=== PATIENT | female | born 1975 | race Caucasian/White ===

== ENCOUNTER → 2016-05-17 | Outpatient (CLI) | payer BC, OTHER ==
[~2016-05-17] MED LIST: FERR324T2 PO; FERR32TA PO; IRON65TA PO; LIDO5DIS36 TD; LORT5TAB PO; MELO15TA4 PO; METOPOW OR; ONDA1TAB15 PO; OXYC1TAB23 PO; REGL10TA6 PO; VICO7.5T11 PO; VITATAB11 PO; XARE20TA PO; ZOFR20TA PO; ZONI25CA2 PO; flexeril OR; promethazine PO; vicodin OR
--- NOTE | 2016-05-19 10:41 | SLEEPCENT ---
DATE OF PROCEDURE: 05/17/2016 ORDERED BY: Dr. Shaver. Nocturnal polysomnography was performed due to concern for the obstructive sleep apnea syndrome symptoms in this patient with complaints of excessive somnolence, morning headaches and nonrestorative sleep. 7 hours and 50 minutes of data were reviewed. There were 372 minutes of sleep identified. Sleep latency was prolonged at 80 minutes Rapid eye movement (REM) latency was likewise prolonged at 159 minutes. Sleep architecture was fair with some fragmentation early in the study. Two REM periods were appreciated. Overall sleep efficiency was 79.9%. The patient's EKG showed a sinus rhythm with an average heart rate of 76 beats per minute. Rate variability was seen surrounding respiratory events. Rate ranged 60-100 beats per minute. EEG showed was mildly artifactual. No focal events were identified. There were normal wave forms for awake and sleep. There were 47 respiratory events identified of 10 seconds in duration or greater for an apnea-hypopnea index of 7.6. The events were obstructive not exclusive to sleep stage nor body posture. Arousals from respiratory events occurred 2.7 times per hour. Oxygen desaturations were seen into the 80s. Some limb activity was noted but arousals from limb events occurred only 3.2 times per hour. Snoring was noted over the course of the study. IMPRESSION: Mild obstructive sleep apnea syndrome (G47.33). RECOMMENDATION: Given the sleep fragmentation and oxygen desaturations identified, the patient should be referred back to the sleep disorder center for pressure therapy. In the interim, alcohol and sedative avoidance should be practiced and caution exercised during operation of motor vehicles.
== END ==
LOC: M SLEEP 19:26
PROVIDERS: ATTEND Internal Medicine Pulmonary Disease
DX: R06.83 Snoring (principal); G47.33 Obstructive sleep apnea (adult) (pediatric)

== ENCOUNTER → 2016-07-01 | Outpatient (CLI) | payer BC, OTHER ==
--- NOTE | 2016-07-03 15:08 | SLEEPCENT ---
DATE OF PROCEDURE: 07/01/2016 ORDERED BY: Dr. Shaver Nocturnal polysomnography was performed for the titration of pressure therapy in this patient with obstructive sleep apnea syndrome and apnea-hypopnea index of 7.6. For testing, the patient was fit with a Squla Eson nasal mask of small size and 4 cm of water pressure were applied to the circuit and the lights were extinguished. 8 hours and 3 minutes of data were reviewed. There were 397 minutes of sleep identified. Sleep latency was normal at 9 minutes. Rapid eye movement (REM) latency was delayed at 154 minutes. Sleep architecture improved with pressure therapy. There were 3 REM periods appreciated. Overall sleep efficiency was 82.8%. Electrocardiogram (EKG) showed a sinus rhythm with an average heart rate of 72 beats per minute. Electroencephalogram (EEG) showed normal waveforms for awake and sleep. Respiratory events were fully palliated with CPAP at a pressure of +6. There was minimal limb activity and remaining measures of sleep physiology were normal. IMPRESSION: Obstructive sleep apnea syndrome (G47.33). RECOMMENDATION: Nightly use of pressure therapy at 6 cm of water.
== END ==
LOC: M SLEEP 19:36
PROVIDERS: ATTEND Internal Medicine Pulmonary Disease
DX: G47.33 Obstructive sleep apnea (adult) (pediatric) (principal)

== ENCOUNTER → 2016-07-09 | Outpatient (CLI) | payer BC, OTHER ==
--- NOTE | 2016-07-09 16:05 | REPMRS ---
Patient History The patient states she has not had a clinical breast exam in over a year. Family history of breast cancer in maternal grandmother and breast cancer in maternal cousin at age 35. Digital Mammo Screening Bilat: July 09, 2016 - Exam #: [id number] Bilateral CC and MLO view(s) were taken. Technologist: Jovanna Villarreal, Technologist No prior studies available for comparison. FINDINGS: There are scattered fibroglandular densities. There is no evidence of cancer on this mammogram. ASSESSMENT: BI-RADS/ACR category 2 mammogram. Benign finding(s). Recommendation Routine screening mammogram of both breasts in 1 year (for women over age 40). This mammogram was interpreted with the aid of an FDA-approved computer-aided dectection system. Electronically Signed By: Bebeto Browning MD 07/09/16 [id number]
== END ==
LOC: M RAD 14:44
PROVIDERS: ATTEND Nurse Practitioner Adult Health
DX: Z12.31 Encounter for screening mammogram for malignant neoplasm of breast (principal)

== ENCOUNTER → 2016-07-19 | Outpatient (CLI) | payer OTHER ==
[~2016-07-19] MED LIST changes: +ELIQ5TAB; +GABA-279; +METF500T; +Percocet; +Symbicort
--- NOTE | 2016-07-27 02:07 | ECWPNPC ---
PATIENT NAME: FARIBA COCHRAN : 1975 GENDER: FEMALE VISIT DATE: 07/19/2016 DISCHARGE DATE: 07/19/16 1645 VISIT LOCKED DATE TIME: PHYSICIAN: BETZY RIVERA RESOURCE: BETZY RIVERA REASON FOR APPOINTMENT 1. SHOULDER/NECK PAIN HISTORY OF PRESENT ILLNESS HISTORY OF PRESENT ILLNESS: PAIN THE PATIENT DESCRIBES THE PAIN... 41 YEAR OLD FEMALE PATIENT WITH HISTORY OF CHRONIC NECK AND SHOULDER PAIN. PATIENT DESCRIBES THE PAIN ACHING, SHARP, STABBING, TENDER, THROBBING, SORE, AND HAVING IT ALL THE TIME WITH A PAIN SCORE OF 7/10. PATIENT STATES THAT SHE WAS USING HYDROCODONE FOR PAIN MANAGEMENT BUT HAS RUN OUT. MRS. COCHRAN STATES THAT THE PAIN IS GETTING SEVERE IN HER RIGHT SHOULDER AND WOULD LIKE TO REPEAT TRIGGER POINT INJECTIONS IF POSSIBLE. PATIENT DENIES UNEXPLAINABLE WEIGHT LOSS, FEVER, CHILLS, NEW CHANGES ON HER URINARY OR BOWEL CONTROL. FALL RISK SCREENING: SCREENING :NO FALLS IN THE PAST YEAR CURRENT MEDICATIONS TAKING VITAMIN B COMPLEX TABLET ORALLY , NOTES: 2 WEEKS AGO TAKING PROAIR HFA 108 (90 BASE) MCG/ACT AEROSOL SOLUTION INHALE TWO PUFFS BY MOUTH EVERY 4 HOURS NEEDED INHALATION , NOTES: 09-18-15 TAKING ELIQUIS 5 MG TABLET TAKE ONE TABLET BY MOUTH TWICE A DAY ORAL , NOTES: 09-18-152229 TAKING METFORMIN HCL ER 500 MG TABLET EXTENDED RELEASE 24 HOUR TAKE 3 TABLET BY MOUTH AT DINNERTIME ORAL , NOTES: 09-14-15 TAKING ONDANSETRON 4 MG TABLET DISPERSIBLE DISSOLVE ONE TABLET ON THE TONGUE EVERY 6 HOURS NEEDED FOR NAUSEA ORAL , NOTES: 1 MONTH AGO TAKING SERTRALINE HCL 50 MG TABLET TAKE ONE TABLET BY MOUTH EVERY DAY ORAL , NOTES: HAS NOT STARTED TAKING GABAPENTIN 100 MG CAPSULE ORALLY THREE TIMES DAILY, NOTES: [id number] TAKING LIDODERM 5 % PATCH 1 PATCH TO INTACT SKIN REMOVE AFTER 12 HOURS EXTERNALLY ONCE A DAY, NOTES: 09-17-15 TAKING CYCLOBENZAPRINE HCL 10 MG TABLET 1 TABLET ORALLY BEFORE BEDTIME PRN FOR SPASMS AND PAIN TAKING OXYCODONE HCL 5 MG TABLET 1 TABLET ORALLY EVERY 6 HRS PRN FOR PAIN MDD3 TAKING SYMBICORT 80-4.5 MCG/ACT AEROSOL 2 PUFFS INHALATION TWICE A DAY NOT-TAKING IRON 1 TAB ORAL , NOTES: 09-16-15 MEDICATION LIST REVIEWED AND RECONCILED WITH THE PATIENT PAST MEDICAL HISTORY DVT CHRONIC BACKPAIN AND NECK PAIN HEADACHE PE RA ANGINA PECTORIS ALLERGIES IBUPROFEN: INTOLERANCE SURGICAL HISTORY APPENDECTOMY D&C GHASSAN FILTER TONSILS GHASSAN FILTER REMOVED PARTIAL HYSTERECTOMY FAMILY HISTORY NO FAMILY HISTORY DOCUMENTED. SOCIAL HISTORY GENERAL: TOBACCO USE ARE YOU A:NONSMOKER RECREATIONAL DRUG USE DRUG USE?NO CAFFEINE CAFFEINE USE?NO LEARNING BARRIERS / SPECIAL NEEDS ABILITY TO UNDERSTAND VERBAL INSTRUCTIONS GOOD, ABILITY TO UNDERSTAND WRITTEN INSTRUCTIONS GOOD, KNOWLEDGE OF EDUCATIONAL NEEDS/TREATMENT PLAN GOOD, VOODOO? NO, ORIENTED TO PLAN OF CARE: PATIENT, PAIN MANAGEMENT PATIENT. MEDICATION ABUSE NO PSYCHOLOGICAL HX TREATMENTNO NEW PATIENT PAIN DIARY PATIENT DESCRIBES PAIN :ACHING, HAVE IT ALL THE TIME, SHARP, STABBING, SORE PAIN CLINIC PFS, CLERGY, PUBLIC HEALTH REFERRALS PFS REFERRAL NEEDED?NO CLERGY REFERRAL NEEDED?NO PUBLIC HEALTH REFERRAL NEEDED?NO WAS THE PROVIDER NOTIFIED OF ANY PERTINENT INFO?NO PATIENT: ____, DENIES ABUSE OR MISUSE OF ANY MEDICATION. ADVANCED DIRECTIVES HEALTH CARE PROXY?YES NAME OF HCP DEBORA COCHRAN CONTACT # FOR HCP [phone] DO YOU HAVE A COPY WITH YOU?NO POWER OF RED LEADER?NO HOSPITALIZATION/MAJOR DIAGNOSTIC PROCEDURE VARIOUS ADMISSIONS FOR BLOOD TRANSFUSIONS 2016 REVIEW OF SYSTEMS CONSTITUTIONAL: ANY CHANGE IN YOUR MEDICAL CONDITION? YES. PT RECENTLY DX WITH ZAHRAA. PT WAS RECENTLY SIZED FOR CPAP, WAITING TO RECEIVE MASK. PT STATES RIGHT SHOULDER PAIN MCC. TPI DONE 09/2014 WITH GOOD RESULTS. PT HAD F/U APPT HERE 10/2015, TPI WERE DISCUSSED, PT DIDN'T PURSUE APPT LIFE GOT IN THE WAY. PT STATES SHE ALSO HAD STERIOD INJECTIONS AT [facility] 01/2016 WITH GOOD RESULTS. PT PRESENTS TODAY RIGHT SHOULDER PAIN IS INCREASING IN INTENSITY . PT WOULD LIKE TO DISCUSS TPI TODAY. PT STATES SHE TAKES METFORMIN FOR WEIGHT LOSS, NOT DM. PT STATES SHE TAKES ELIQUIS FOR DVT & PE.&NBSP;. CHILLS &NBSP;&NBSP; NO&NBSP;. FEVER &NBSP;&NBSP; NO&NBSP;. INFECTION: DO YOU HAVE NEW INFECTIONS? NO . DO YOU HAVE HISTORY OF MRSA? NO . MUSCULOSKELETAL: ANY NEW PATTERNS OF PAIN OR NUMBNESS? NO . GASTROENTEROLOGY: ANY NEW CHANGE IN BOWEL CONTROL? NO . GENITOURINARY: ANY NEW CHANGE IN BLADDER CONTROL? NO . IS THERE A CHANCE YOU COULD BE ? NO . HEMATOLOGY/LYMPH: DO YOU TAKE ANY BLOOD THINNERS? (FOR EXAMPLE- COUMADIN, PLAVIX, AGGRENOX, PLATEL, PRADAXA, OR XARELTO) YES, ELLIQUIS . WHEN WAS YOUR LAST DOSE? DATE: TIME: . NEUROLOGY: HAVE YOU FALLEN IN THE PAST 6 MONTHS? NO . ANY NEW EXTREMITY NUMBNESS OR WEAKNESS? NO . CARDIOLOGY: DO YOU HAVE A PACEMAKER OR DEFIBRILLATOR? NO . RESPIRATORY: HAVE YOU BEEN SICK IN THE PAST WEEK? NO . FEVER NO . FLU LIKE SYMPTOMS? NO . COUGH NO. RECENT DX OF ZAHRAA, CPAP IN PROCESS . INTEGUMENTARY: DO YOU HAVE ANY RASHES OR OPEN SORES? NO . ALLERGIC/IMMUNO: ARE YOU ALLERGIC TO SHELLFISH OR IV DYE? NO . ANY NEW ALLERGIES? NO . PSYCHIATRIC: DO YOU HAVE THOUGHTS OF HURTING YOURSELF OR SOMEONE ELSE? NO . ARE YOU ABUSED, NEGLECTED, OR IN AN UNSAFE ENVIRONMENT? NO . ENDOCRINOLOGY: ARE YOU DIABETIC? NO . OTHER: DO YOU NEED ANY PRESCRIPTIONS? YES. PERCOSET . IF YES, PLEASE LIST: ____ . ANY NEW PROBLEMS WITH YOUR MEDICATIONS? NO . WHEN DID YOU LAST EAT? ____ . WHEN DID YOU LAST DRINK? ____ . WHAT DID YOU LAST DRINK? ____ . NAME OF PERSON DRIVING YOU HOME? ____ . DO YOU HAVE ANY OTHER QUESTIONS OR CONCERNS NO . REVIEWED BY: PROVIDER: BETZY RIVERA MD . VITAL SIGNS WT 317 LBS, HT 67 IN, BMI 49.64 INDEX, BP 139/96 MM HG, HR 84 /MIN, RR 16 /MIN, TEMP 99.0 F, OXYGEN SAT % 97%, SAFE IN ENV? (Y/N) Y, NA INITIALS KS 15:42, REVIEWED BY: EM. EXAMINATION : PATIENT IS ALERT O X 3 AND COOPERATIVE. TENDERNESS IN THE SHOULDER AND CERVICAL AREA. PATIENT HAS BANDS OF TISSUES, RESTRICTION OF MOVEMENT AND PRESENCE OF TRIGGER POINTS AT THE SHOULDER AND NECK AREA. ASSESSMENTS MYALGIA - M79.1 (PRIMARY) TREATMENT MYALGIA NOTES: WE DISCUSSED SEVERAL ISSUES WITH MRS. COCHRAN'S PAIN MANAGEMENT CASE. AT THIS TIME THE PATIENT WILL RECEIVE A RECEIVE OF OXYCODONE FOR THE SOMATIC PAIN. PATIENT DENIES ABUSE OF ANY MEDICATION, DENIES USE OF ILLEGAL SUBSTANCES, AND SATES THAT SHE IS ONLY USING THE MEDICATION FOR PAIN MANAGEMENT. WE DISCUSSED MOVING FORWARD WITH TRIGGER POINT INJECTIONS DUE TO THE SPASTICITY IN THE NECK AND SHOULDER AREA. WE DISCUSSED THE RISKS, BENENFITS, AND ALTNERATIVES OF THE INJECTION AND THE PATIENT WOULD LIKE TO PROCEED AT THIS TIME. INSTRUCTIONS WERE GIVEN, QUESTIONS WERE ANSWERED, PATIENT REPORTS UNDERSTANDING AND AGREES WITH THE PLAN. I, EREN BERG, DOCUMENTED THE ABOVE INFORMATION ACTING A SCRIBE FOR DR. RIVERA. I HAVE REVIEWED THE ABOVE DOCUMENT, WRITTEN BY EREN NAIK AND I VERIFY THAT IT IS ACCURATE. OTHERS REFILL OXYCODONE HCL TABLET, 5 MG, 1 TABLET, ORALLY, EVERY 6 HRS PRN FOR PAIN MDD3, 30 DAY(S), 10, REFILLS 0 PROCEDURE CODES FA211 ESTABILISHED PATIENT [facility] FAC[facility] CHARGE G8427 DOC MEDS VERIFIED W/PT OR RE G8730 PAIN ASSESS POS TOOL F/U PLAN DOC DISPOSITION & COMMUNICATION FOLLOW UP 3 WEEKS ELECTRONICALLY SIGNED BY BETZY RIVERA MD ON 07/26/2016 AT 07:04 PM EDT DISCLAIMER : THIS IS A VISIT SUMMARY EXTRACTED FROM THE [employer] CHART. IT IS NOT A COPY OF THE [employer] PROGRESS NOTE. ETHAN
== END ==
LOC: M PAIN 15:40
PROVIDERS: ATTEND Anesthesiology
DX: M79.1 Myalgia (principal); G89.29 Other chronic pain; M54.2 Cervicalgia; M25.511 Pain in right shoulder; Z79.891 Long term (current) use of opiate analgesic; Z79.899 Other long term (current) drug therapy; Z79.84 Long term (current) use of oral hypoglycemic drugs

== ENCOUNTER → 2016-08-04 | Outpatient (CLI) | payer BC, OTHER ==
[~2016-08-04] MED LIST changes: +BUPIVACAINE HCL 0.25% 10 ML VIAL As Ordered ONE; +BUPIVACAINE HCL 0.25% 30 ML VIAL As Ordered ONE; +TRIAMCINOLONE ACETONIDE SUSP 40 MG/ML VIAL (J3301) As Ordered ONE
--- NOTE | 2016-08-08 23:38 | ECWPNPC ---
PATIENT NAME: FARIBA COCHRAN : 1975 GENDER: FEMALE VISIT DATE: 08/04/2016 DISCHARGE DATE: 08/04/16 1331 VISIT LOCKED DATE TIME: PHYSICIAN: BETZY RIVERA RESOURCE: BETZY RIVERA REASON FOR APPOINTMENT 1. TPI HISTORY OF PRESENT ILLNESS HISTORY OF PRESENT ILLNESS: PAIN THE PATIENT DESCRIBES THE PAIN... FALL RISK SCREENING: SCREENING :NO FALLS IN THE PAST YEAR CURRENT MEDICATIONS TAKING OXYCODONE HCL 5 MG TABLET 1 TABLET ORALLY EVERY 6 HRS PRN FOR PAIN MDD3, NOTES: 5-6 DAYS AGO TAKING VITAMIN B COMPLEX TABLET ORALLY , NOTES: 2 WEEKS TAKING PROAIR HFA 108 (90 BASE) MCG/ACT AEROSOL SOLUTION INHALE TWO PUFFS BY MOUTH EVERY 4 HOURS NEEDED INHALATION , NOTES: 2 WEEKS TAKING ELIQUIS 5 MG TABLET TAKE ONE TABLET BY MOUTH TWICE A DAY ORAL , NOTES: 0630 TAKING METFORMIN HCL ER 500 MG TABLET EXTENDED RELEASE 24 HOUR TAKE 3 TABLET BY MOUTH AT DINNERTIME ORAL , NOTES: 08/03/16@1830 TAKING ONDANSETRON 4 MG TABLET DISPERSIBLE DISSOLVE ONE TABLET ON THE TONGUE EVERY 6 HOURS NEEDED FOR NAUSEA ORAL , NOTES: 3 MONTHS AGO TAKING GABAPENTIN 100 MG CAPSULE ORALLY THREE TIMES DAILY, NOTES: 0630 TAKING LIDODERM 5 % PATCH 1 PATCH TO INTACT SKIN REMOVE AFTER 12 HOURS EXTERNALLY ONCE A DAY, NOTES: 1 MONTH AGO TAKING SYMBICORT 80-4.5 MCG/ACT AEROSOL 2 PUFFS INHALATION TWICE A DAY, NOTES: 2 DAYS AGO NOT-TAKING SERTRALINE HCL 50 MG TABLET TAKE ONE TABLET BY MOUTH EVERY DAY ORAL , NOTES: HAS NOT STARTED NOT-TAKING IRON 1 TAB ORAL , NOTES: 09-16-15 DISCONTINUED CYCLOBENZAPRINE HCL 10 MG TABLET 1 TABLET ORALLY BEFORE BEDTIME PRN FOR SPASMS AND PAIN MEDICATION LIST REVIEWED AND RECONCILED WITH THE PATIENT PAST MEDICAL HISTORY DVT CHRONIC BACKPAIN AND NECK PAIN HEADACHE PE RA ANGINA PECTORIS SLEEP APNEA ON CPAP ALLERGIES IBUPROFEN: INTOLERANCE REVIEW OF SYSTEMS CONSTITUTIONAL: ANY CHANGE IN YOUR MEDICAL CONDITION? YES, SLEEP APNEA . CHILLS NO . FEVER NO . INFECTION: DO YOU HAVE NEW INFECTIONS? NO . DO YOU HAVE HISTORY OF MRSA? NO . MUSCULOSKELETAL: ANY NEW PATTERNS OF PAIN OR NUMBNESS? NO . GASTROENTEROLOGY: ANY NEW CHANGE IN BOWEL CONTROL? NO . GENITOURINARY: ANY NEW CHANGE IN BLADDER CONTROL? NO . IS THERE A CHANCE YOU COULD BE ? NO . HEMATOLOGY/LYMPH: DO YOU TAKE ANY BLOOD THINNERS? (FOR EXAMPLE- COUMADIN, PLAVIX, AGGRENOX, PLATEL, PRADAXA, OR XARELTO) YES . WHEN WAS YOUR LAST DOSE? DATE: TIME: 08/04/16@0630 . NEUROLOGY: HAVE YOU FALLEN IN THE PAST 6 MONTHS? NO . ANY NEW EXTREMITY NUMBNESS OR WEAKNESS? NO . CARDIOLOGY: DO YOU HAVE A PACEMAKER OR DEFIBRILLATOR? NO . RESPIRATORY: HAVE YOU BEEN SICK IN THE PAST WEEK? NO . FEVER NO . FLU LIKE SYMPTOMS? NO . COUGH NO . INTEGUMENTARY: DO YOU HAVE ANY RASHES OR OPEN SORES? NO . ALLERGIC/IMMUNO: ARE YOU ALLERGIC TO SHELLFISH OR IV DYE? NO . ANY NEW ALLERGIES? NO . PSYCHIATRIC: DO YOU HAVE THOUGHTS OF HURTING YOURSELF OR SOMEONE ELSE? NO . ARE YOU ABUSED, NEGLECTED, OR IN AN UNSAFE ENVIRONMENT? NO . ENDOCRINOLOGY: ARE YOU DIABETIC? NO . OTHER: DO YOU NEED ANY PRESCRIPTIONS? NO . IF YES, PLEASE LIST: ____ . ANY NEW PROBLEMS WITH YOUR MEDICATIONS? NO . WHEN DID YOU LAST EAT? ____ . WHEN DID YOU LAST DRINK? ____ . WHAT DID YOU LAST DRINK? ____ . NAME OF PERSON DRIVING YOU HOME? ____DON COCHRAN . DO YOU HAVE ANY OTHER QUESTIONS OR CONCERNS NO . REVIEWED BY: PROVIDER: . VITAL SIGNS WT 317 LBS, HT 67 IN, BMI 49.64 INDEX, BP 146/88 MM HG, HR 97 /MIN, RR 18 /MIN, TEMP 98.3 F, OXYGEN SAT % 97%, NA INITIALS SC 12:42, REVIEWED BY: VD. ASSESSMENTS MYALGIA - M79.1 (PRIMARY) PROCEDURES PN TRIGGER POINT INJECTION NO STEROIDS PRE PROCEDURE DIAGNOSIS 1. MYALGIA 2. PAIN AT RIGHT SHOULDER AREA POST PROCEDURE DIAGNOSIS 1. MYALGIA 2. PAIN AT RIGHT SHOULDER AREA PROCEDURE TRIGGER POINT INJECTION AT RIGHT SHOULDER AREA SURGEON DR. BETZY RIVERA DIRECTOR OF ORTHOPEDICS NONE ANESTHESIA LOCAL PRE PROCEDURE NOTE 41 YEAR-OLD PATIENT WITH HISTORY OF CHRONIC PAIN AT RIGHT SHOULDER AREA. I EVALUATED THE PATIENT AND REVIEWED THE CHART. THERE IS EVIDENCE OF BANDS OF TISSUE WITH RESTRICTION OF MOVEMENT AND PRESENCE OF TRIGGER POINT AT THE AFFECTED AREA. I WENT OVER THE RISKS, ALTERNATIVES, AND BENEFITS ASSOCIATED WITH THIS PROCEDURE. THE PATIENT WOULD LIKE TO PROCEED AND GAVE CONSENT TO PERFORM THE PROCEDURE. THE PATIENT DENIES UNEXPLAINABLE WEIGHT LOSS, FEVER, CHILLS, OR NEW CHANGES IN URINARY OR BOWEL CONTROL. DESCRIPTION OF PROCEDURE THE PATIENT WAS BROUGHT TO THE PROCEDURE ROOM AND PLACED IN THE SITTING PRONE POSITION. THE AREA WAS CLEANED WITH ALCOHOL. THE PROCEDURE WAS DONE USING [employer] STERILE TECHNIQUES. I CHECKED LATERALITY AND THE LEVEL WHERE THE PROCEDURE WAS GOING TO BE PERFORMED WITH THE PATIENT AND THE SUPPORTING STAFF AT THE MOMENT OF THE TIME OUT IN THE PROCEDURE ROOM. USING A 25-GAUGE NEEDLE, TRIGGER POINTS WERE INJECTED AT THE RIGHT SHOULDER AREA WITH A TOTAL OF 40 ML OF BUPIVACAINE 0.25%. AGREED WITH THE PATIENT THE PROCEDURE WAS DONE WITHOUT STEROIDS. THERE WAS NO EVIDENCE OF BLOOD, PARESTHESIA OR CEREBROSPINAL FLUID DURING THE PROCEDURE. THE PATIENT WAS SENT TO THE RECOVERY ROOM. THE PATIENT WAS MOVING THE EXTREMITIES AND DOING WELL. THERE WAS NO COMPLICATION DURING THE PROCEDURE POST PROCEDURE NOTE THE PATIENT WILL BE SEEN IN A FOLLOW UP IN THE NEXT FEW WEEKS. INSTRUCTIONS WERE GIVEN, QUESTIONS WERE ANSWERED, AND THE PATIENT EXPRESSED UNDERSTANDING AND AGREED WITH THE PLAN. I, EREN BERG, DOCUMENTED THE ABOVE INFORMATION ACTING A SCRIBE FOR DR. RIVERA. I HAVE REVIEWED THE ABOVE DOCUMENT, WRITTEN BY EREN NAIK AND I VERIFY THAT IT IS ACCURATE PROCEDURE CODES 49250 INJ TRIGGER POINT 03/08 [facility] DISPOSITION & COMMUNICATION FOLLOW UP 3 WEEKS ELECTRONICALLY SIGNED BY BETZY RIVERA MD ON 08/08/2016 AT 05:24 PM EDT DISCLAIMER : THIS IS A VISIT SUMMARY EXTRACTED FROM THE [employer] CHART. IT IS NOT A COPY OF THE [employer] PROGRESS NOTE. ETHAN
== END ==
LOC: M PAIN 12:40
PROVIDERS: ATTEND Anesthesiology
DX: G89.29 Other chronic pain (principal); M79.1 Myalgia; M25.511 Pain in right shoulder; Z79.891 Long term (current) use of opiate analgesic; Z79.899 Other long term (current) drug therapy; Z79.84 Long term (current) use of oral hypoglycemic drugs; Z88.6 Allergy status to analgesic agent

== ENCOUNTER 2016-08-12 17:43 | Emergency (ER) | payer BC, OTHER ==
[~2016-08-12] VITALS: Ht 172.7 cm; Wt 143.8 kg
[~2016-08-12 17:43] MED LIST changes: -BUPIVACAINE HCL 0.25% 10 ML VIAL As Ordered ONE; -BUPIVACAINE HCL 0.25% 30 ML VIAL As Ordered ONE; -ELIQ5TAB; -GABA-279; -METF500T; -Percocet; -Symbicort; -TRIAMCINOLONE ACETONIDE SUSP 40 MG/ML VIAL (J3301) As Ordered ONE
[2016-08-12] MEDS ORDERED: ELIQ5TAB (17:51)
[2016-08-12] MEDS ORDERED: METF500T (17:51)
[2016-08-12] MEDS ORDERED: GABA-279 (17:51)
[2016-08-12] MEDS ORDERED: Symbicort (17:51)
[2016-08-12] MEDS ORDERED: Percocet (17:51)
[2016-08-12 20:08] VITALS: BP 144/94
== END 2016-08-12 20:10 | disposition home or self-care (01) ==
LOC: M ED 18:48
DX: M79.661 Pain in right lower leg (principal); F41.9 Anxiety disorder, unspecified; F33.9 Major depressive disorder, recurrent, unspecified; D75.9 Disease of blood and blood-forming organs, unspecified; Z79.899 Other long term (current) drug therapy; Z79.84 Long term (current) use of oral hypoglycemic drugs; Z79.01 Long term (current) use of anticoagulants; Z88.8 Allergy status to other drugs, medicaments and biological substances; J30.89 Other allergic rhinitis; Z87.891 Personal history of nicotine dependence

== ENCOUNTER → 2016-09-27 | Outpatient (CLI) | payer BC, OTHER ==
[~2016-09-27] MED LIST changes: +ELIQ5TAB; +GABA-279; -LIDO5DIS36 TD; +LIDO5DIS41 TD; +METF500T13; -ONDA1TAB15 PO; +ONDA4TAB5 PO; +PERC5TAB12 PO; +PHEN30CA2; +Percocet; +Symbicort
--- NOTE | 2016-09-27 13:18 | REP ---
Left ankle four views: There is no fracture or dislocation. Mineralization is normal. 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 There are small calcaneal plantar and Achilles spurs. Signed by Bebeto Ortiz MD 09/27/2016 01:07 P
--- NOTE | 2016-09-27 13:19 | REP ---
Left foot four views: There is questionable dorsal soft tissue edema. This should be confirmed clinically. There is no fracture or dislocation. There are no calcifications or foreign bodies. There are calcaneal plantar and Achilles spurs. 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 Signed by Bebeto Ortiz MD 09/27/2016 01:08 P
== END ==
LOC: M LRY 12:08
PROVIDERS: ATTEND Nurse Practitioner Family
DX: S99.922A Unspecified injury of left foot, initial encounter (principal); M77.32 Calcaneal spur, left foot; M19.072 Primary osteoarthritis, left ankle and foot; X58.XXXA Exposure to other specified factors, initial encounter; Y92.9 Unspecified place or not applicable

== ENCOUNTER 2016-11-22 19:51 | Emergency (ER) | payer BC, OTHER ==
[~2016-11-22] VITALS: Ht 172.7 cm; Wt 139.5 kg
[~2016-11-22 19:51] MED LIST changes: -PERC5TAB12 PO; -PHEN30CA2
[2016-11-22] MEDS ORDERED: PHEN30CA2 (20:19)
[2016-11-22] MEDS ORDERED: NS 500 ML IV ONE (22:00)
[2016-11-22] MEDS ORDERED: PERCOCET 5MG/325MG TAB PO ONE (22:00)
[2016-11-22 22:10] LABS: BASO % 0.4 % (0.0-1.0); EOS # 0.2 K/mm3 (0.0-0.50); EOS % 1.9 % (0.0-3.0); LARGE UNSTAINED CELL # 0.1 K/mm3 (0.0-0.4); LARGE UNSTAINED CELL % 1.4 % (0.0-4.0); LYMPH # 1.5 K/mm3 (1.5-4.5); LYMPH % 15.5 % (24.0-44.0); MEAN CORPUSCULAR HEMOGLOBIN 27.5 pg (27.0-33.0); MEAN CORPUSCULAR HGB CONC 32.8 g/dl (32.0-36.5); MEAN CORPUSCULAR VOLUME 83.9 fl (80.0-96.0); MONO # 0.5 K/mm3 (0.0-0.8); MONO % 4.8 % (0.0-5.0); NEUTROPHILS # 7.2 K/mm3 (1.8-7.7); NEUTROPHILS % 76.1 % (36.0-66.0); PLATELET COUNT, AUTOMATED 252 k/mm3 (150-450); RED CELL DISTRIBUTION WIDTH 13.8 % (11.5-14.5); WHITE BLOOD COUNT 9.5 K/mm3 (4.0-10.0)
[2016-11-22 22:14] LABS: ALBUMIN 3.7 GM/DL (3.2-5.2); ALBUMIN/GLOBULIN RATIO 1.03 (1.00-1.93); ALKALINE PHOSPHATASE 75 U/L (45-117); ALT/SGPT 22 U/L (12-78); ANION GAP 3 MEQ/L (8-16); AST/SGOT 16 U/L (15-37); BILIRUBIN,DIRECT 0.1 MG/DL (0.0-0.2); BILIRUBIN,TOTAL 0.4 MG/DL (0.2-1.0); BLOOD UREA NITROGEN 11 MG/DL (7-18); CALCIUM LEVEL 8.9 MG/DL (8.5-10.1); CARBON DIOXIDE LEVEL 30 MEQ/L (21-32); CHLORIDE LEVEL 107 MEQ/L (98-107); CREATININE FOR GFR 0.61 MG/DL (0.55-1.02); GLOMERULAR FILTRATION RATE > 60.0 (>58); GLUCOSE, FASTING 87 MG/DL (70-105); SODIUM LEVEL 140 MEQ/L (136-145); TOTAL PROTEIN 7.3 GM/DL (6.4-8.2)
--- NOTE | 2016-11-22 23:10 | REPUSA ---
CT of the head Clinical history: Headache. Comparison: 01/07/2015. Technique: Multiple axial CT images were obtained through the head without administration of contrast . Findings: The ventricles and sulci are symmetric bilaterally. There is no evidence of acute hemorrhag e or infarct. There is no midline shift, mass effect, or extra-axial fluid collection. The osseous st ructures are unremarkable. The visualized paranasal sinuses and mastoid air cells are clear. Impression: Negative study.
[2016-11-22] MEDS ORDERED: PERC5TAB12 PO (23:20)
[2016-11-22 23:39] VITALS: BP 139/85
--- NOTE | 2016-11-23 05:59 | ECGEPIP ---
Stationary ECG Study [facility] - ED Test Date: 2016-11-22 Pat Name: FARIBA COCHRAN Department: Room: - Gender: F Coordinator Volunteer Services: : 1975 Requested By: MILLER Tran PA-C Order Number: [id number] Reading MD: Iftikhar Spence Measurements Intervals [place] Rate: 81 P: 7 MD: 174 QRS: 14 QRSD: 90 T: 11 QT: 372 QTc: 433 Interpretive Statements SINUS RHYTHM WITH SINUS ARRHYTHMIA Electronically Signed On 11-23-2016 5:58:42 EDT by Iftikhar Spence
== END 2016-11-22 23:43 | disposition home or self-care (01) ==
LOC: EDSEX 19:51 → M ED 19:51 → EDBD 19:51 → M ED 23:43
DX: R51 Headache (principal); R42 Dizziness and giddiness; Z87.891 Personal history of nicotine dependence

== ENCOUNTER → 2016-12-03 | Outpatient (CLI) | payer OTHER ==
[~2016-12-03] MED LIST changes: +PERC5TAB12 PO; +PHEN30CA2
--- NOTE | 2016-12-23 00:53 | ECWPNPC ---
PATIENT NAME: FARIBA COCHRAN : 1975 GENDER: FEMALE VISIT DATE: 12/03/2016 DISCHARGE DATE: 12/03/16954 VISIT LOCKED DATE TIME: PHYSICIAN: NADER DAY RESOURCE: NADER DAY REASON FOR APPOINTMENT 1. SHOULDER HISTORY OF PRESENT ILLNESS HISTORY OF PRESENT ILLNESS: HERE FOR F/U OF CHRONIC RIGHT SHOULDER PAIN.HAD TPI IN JULY THAT WAS NOT HELPFUL PREVIOUS TPI.DISCUSSED MEDICATION AND TREATMENT OPTIONS.PAIN RADIATES INTO NECK AND CAUSES MIGRAINES.RATING PAIN VAS 6/10.PAIN IS CONSTANT ACHING AND SHARP.PAIN IS AGGREVATED WITH ROJM NECK OR WITH RAISING RIGHT ARM.PAIN HAS GOTTEN WORSE OVER THE PAST MONTH. PAIN THE PATIENT DESCRIBES THE PAIN... FALL RISK SCREENING: SCREENING :NO FALLS IN THE PAST YEAR CURRENT MEDICATIONS TAKING PROAIR HFA 108 (90 BASE) MCG/ACT AEROSOL SOLUTION INHALE TWO PUFFS BY MOUTH EVERY 4 HOURS NEEDED INHALATION , NOTES: 2 WEEKS TAKING ELIQUIS 5 MG TABLET TAKE ONE TABLET BY MOUTH TWICE A DAY ORAL , NOTES: 629 TAKING METFORMIN HCL ER 500 MG TABLET EXTENDED RELEASE 24 HOUR TAKE 3 TABLET BY MOUTH AT DINNERTIME ORAL , NOTES: 08/03/16@1830 TAKING ONDANSETRON 4 MG TABLET DISPERSIBLE DISSOLVE ONE TABLET ON THE TONGUE EVERY 6 HOURS NEEDED FOR NAUSEA ORAL , NOTES: 3 MONTHS AGO TAKING GABAPENTIN 100 MG CAPSULE ORALLY THREE TIMES DAILY, NOTES: 06 TAKING LIDODERM 5 % PATCH 1 PATCH TO INTACT SKIN REMOVE AFTER 12 HOURS EXTERNALLY ONCE A DAY, NOTES: RAN OUT OF TAKING SYMBICORT 80-4.5 MCG/ACT AEROSOL 2 PUFFS INHALATION TWICE A DAY, NOTES: 2 DAYS AGO TAKING ACETAMINOPHEN 500 MG TABLET 2 TABLETS NEEDED ORALLY EVERY 6 HRS NOT-TAKING OXYCODONE HCL 5 MG TABLET 1 TABLET ORALLY EVERY 6 HRS PRN FOR PAIN MDD3, NOTES: INEFFECTIVE NOT-TAKING VITAMIN B COMPLEX TABLET ORALLY , NOTES: 2 WEEKS NOT-TAKING ROBAXIN 500 MG TABLET 2 TABLETS ORALLY EVERY 6 HRS MAY CAUSE DROWSINESS NOT-TAKING SERTRALINE HCL 50 MG TABLET TAKE ONE TABLET BY MOUTH EVERY DAY ORAL , NOTES: HAS NOT STARTED NOT-TAKING IRON 1 TAB ORAL , NOTES: 09-16-15 MEDICATION LIST REVIEWED AND RECONCILED WITH THE PATIENT PAST MEDICAL HISTORY DVT CHRONIC BACKPAIN AND NECK PAIN HEADACHE PE RA ANGINA PECTORIS SLEEP APNEA ON CPAP ALLERGIES IBUPROFEN: INTOLERANCE SOCIAL HISTORY GENERAL: TOBACCO USE ARE YOU A:FORMER SMOKER HOW LONG HAS IT BEEN SINCE YOU LAST SMOKED?> 10 YEARS RECREATIONAL DRUG USE DRUG USE?NO CAFFEINE CAFFEINE USE?NO LEARNING BARRIERS / SPECIAL NEEDS ABILITY TO UNDERSTAND VERBAL INSTRUCTIONS GOOD, ABILITY TO UNDERSTAND WRITTEN INSTRUCTIONS GOOD, KNOWLEDGE OF EDUCATIONAL NEEDS/TREATMENT PLAN GOOD, DRUZE? NO, ORIENTED TO PLAN OF CARE: PATIENT, PAIN MANAGEMENT PATIENT. MEDICATION ABUSE NO PSYCHOLOGICAL HX TREATMENTNO NEW PATIENT PAIN DIARY PATIENT DESCRIBES PAIN :ACHING, HAVE IT ALL THE TIME, SHARP, STABBING, SORE PAIN CLINIC PFS, CLERGY, PUBLIC HEALTH REFERRALS PFS REFERRAL NEEDED?NO CLERGY REFERRAL NEEDED?NO PUBLIC HEALTH REFERRAL NEEDED?NO WAS THE PROVIDER NOTIFIED OF ANY PERTINENT INFO?NO HAS THE PATIENT BEEN EDUCATED REGARDING HIS/HER PLAN OF CARE?YES HAS THE PATIENT BEEN EDUCATED REGARDING PAIN, THE RISK FOR PAIN, THE IMPORTANCE OF EFFECTIVE PAIN MANAGEMENT, AND THE PAIN ASSESSMENT PROCESS?YES PATIENT: ____, DENIES ABUSE OR MISUSE OF ANY MEDICATION. ADVANCE DIRECTIVES HEALTH CARE PROXY?YES NAME OF HCP DEBORA COCHRAN CONTACT # FOR HCP [phone] DO YOU HAVE A COPY WITH YOU?NO POWER OF ASSEMBLER FOR PULLER OVER MACHINE?NO REVIEW OF SYSTEMS REVIEWED BY: PROVIDER: NADER THOMAS . CONSTITUTIONAL: ANY CHANGE IN YOUR MEDICAL CONDITION? NO . CHILLS NO . FEVER NO . INFECTION: DO YOU HAVE NEW INFECTIONS? NO . DO YOU HAVE HISTORY OF MRSA? NO . MUSCULOSKELETAL: ANY NEW PATTERNS OF PAIN OR NUMBNESS? YES PT REPORTS PAIN IS WORSE IN SHOULDER/NECK. HAD TPI 07/2016 WITH SOME PAIN RELIEF REPORTED, DIDN'T LAST LONG PREVIOUS INJECTIONS . GASTROENTEROLOGY: ANY NEW CHANGE IN BOWEL CONTROL? NO . GENITOURINARY: ANY NEW CHANGE IN BLADDER CONTROL? NO . IS THERE A CHANCE YOU COULD BE ? NO . HEMATOLOGY/LYMPH: DO YOU TAKE ANY BLOOD THINNERS? (FOR EXAMPLE- COUMADIN, PLAVIX, AGGRENOX, PLATEL, PRADAXA, OR XARELTO) YES ELIQUIS . WHEN WAS YOUR LAST DOSE? DATE: TIME: . NEUROLOGY: HAVE YOU FALLEN IN THE PAST 6 MONTHS? NO . ANY NEW EXTREMITY NUMBNESS OR WEAKNESS? NO . CARDIOLOGY: DO YOU HAVE A PACEMAKER OR DEFIBRILLATOR? NO . RESPIRATORY: HAVE YOU BEEN SICK IN THE PAST WEEK? NO . FEVER NO . FLU LIKE SYMPTOMS? NO . COUGH NO . INTEGUMENTARY: DO YOU HAVE ANY RASHES OR OPEN SORES? NO . ALLERGIC/IMMUNO: ARE YOU ALLERGIC TO SHELLFISH OR IV DYE? NO . ANY NEW ALLERGIES? NO . PSYCHIATRIC: DO YOU HAVE THOUGHTS OF HURTING YOURSELF OR SOMEONE ELSE? NO . ARE YOU ABUSED, NEGLECTED, OR IN AN UNSAFE ENVIRONMENT? NO . ENDOCRINOLOGY: ARE YOU DIABETIC? NO . OTHER: DO YOU NEED ANY PRESCRIPTIONS? YES . IF YES, PLEASE LIST: ____ACETAMINOPHEN/OXYCODONE . ANY NEW PROBLEMS WITH YOUR MEDICATIONS? NO . WHEN DID YOU LAST EAT? ____ . WHEN DID YOU LAST DRINK? ____ . WHAT DID YOU LAST DRINK? ____ . NAME OF PERSON DRIVING YOU HOME? ____ . DO YOU HAVE ANY OTHER QUESTIONS OR CONCERNS NO . VITAL SIGNS WT 296 LBS, HT 67 IN, BMI 46.36 INDEX, BP 152/81 MM HG, HR 89 /MIN, RR 20 /MIN, TEMP 98.2 F, OXYGEN SAT % 100%, SAFE IN ENV? (Y/N) YES, REVIEWED BY: SANIA. EXAMINATION GENERAL EXAMINATION: PSYCHAFFECT FLAT,DEPRESSED. NECK:TRACHEA MIDLINE. NO CERVICAL OR SUPRACLAVICULAR LYMPHADENOPATHY NOTED. LUNGS:LUNG VELASQUEZ ARE CLEAR TO AUSCULTATION BILATERALLY. GOOD MOVEMENT OF AIR. HEART:S1, S2 IN A REGULAR RATE AND RHYTHM. NO SIGNIFICANT MURMURS, RUBS OR GALLOPS NOTED. MUSCULOSKELETAL:MUSCLE STRENGTH TESTING 5/5 LUE/3/5 RUE, TRIGGER POINTS:, ELICITED WITH PALPATION OVER CERVICAL SPINOUS PROCESSES AND ACROSS THE TRAPEZIUS MUSCLES RIGHT. RESTRICTION OF ROM IS NOTED. . ASSESSMENTS PAIN IN RIGHT SHOULDER - M25.511 (PRIMARY) OTHER CHRONIC PAIN - G89.29 MYOFASCIAL PAIN - M79.1 TREATMENT PAIN IN RIGHT SHOULDER NOTES: PT 2X WK [id number] RELEASETPI RIGHT SHOULDER. PREVENTIVE MEDICINE PAIN CLINIC TEACHING: PROCEDURE TEACHING REVIEWED TRIGGER POINT TEACHING WITH PT, PT VERBALIZES UNDERSTANDING. PROCEDURE CODES FA211 ESTABILISHED PATIENT [facility] CHARGE DISPOSITION & COMMUNICATION FOLLOW UP 2WK POST (REASON: TPI RIGHT SHOULDER) ELECTRONICALLY SIGNED BY WILLIAM STAUFFER ON 12/22/2016 AT 06:56 PM EDT DISCLAIMER : THIS IS A VISIT SUMMARY EXTRACTED FROM THE [employer] CHART. IT IS NOT A COPY OF THE [employer] PROGRESS NOTE. ETHAN
== END ==
LOC: M PAIN 08:45
PROVIDERS: ATTEND Nurse Practitioner Family
DX: M25.511 Pain in right shoulder (principal); G89.29 Other chronic pain; M79.1 Myalgia; Z79.84 Long term (current) use of oral hypoglycemic drugs; Z79.899 Other long term (current) drug therapy; Z87.891 Personal history of nicotine dependence; Z88.6 Allergy status to analgesic agent; Z86.2 Personal history of diseases of the blood and blood-forming organs and certain disorders involving the immune mechanism; Z86.711 Personal history of pulmonary embolism

== ENCOUNTER → 2016-12-15 | Outpatient (CLI) | payer BC, OTHER ==
[~2016-12-15] MED LIST changes: +BUPIVACAINE HCL 0.25% 10 ML VIAL As Ordered ONE; +BUPIVACAINE HCL 0.25% 30 ML VIAL As Ordered ONE; +TRIAMCINOLONE ACETONIDE SUSP 40 MG/ML VIAL (J3301) As Ordered ONE
--- NOTE | 2016-12-21 01:15 | ECWPNPC ---
PATIENT NAME: FARIBA COCHRAN : 1975 GENDER: FEMALE VISIT DATE: 12/15/2016 DISCHARGE DATE: 12/15/16 1600 VISIT LOCKED DATE TIME: PHYSICIAN: BETZY RIVERA RESOURCE: BETZY RIVERA REASON FOR APPOINTMENT 1. TPI RIGHT SHOULDER HISTORY OF PRESENT ILLNESS HISTORY OF PRESENT ILLNESS: PAIN THE PATIENT DESCRIBES THE PAIN... FALL RISK SCREENING: SCREENING :NO FALLS IN THE PAST YEAR CURRENT MEDICATIONS TAKING PROAIR HFA 108 (90 BASE) MCG/ACT AEROSOL SOLUTION INHALE TWO PUFFS BY MOUTH EVERY 4 HOURS NEEDED INHALATION , NOTES: NON RECENT TAKING ELIQUIS 5 MG TABLET TAKE ONE TABLET BY MOUTH TWICE A DAY ORAL , NOTES: 12/14 699 TAKING METFORMIN HCL ER 500 MG TABLET EXTENDED RELEASE 24 HOUR TAKE 3 TABLET BY MOUTH AT DINNERTIME ORAL , NOTES: 12/14 1800 TAKING ONDANSETRON 4 MG TABLET DISPERSIBLE DISSOLVE ONE TABLET ON THE TONGUE EVERY 6 HOURS NEEDED FOR NAUSEA ORAL , NOTES: 12/13 1400 TAKING GABAPENTIN 100 MG CAPSULE ORALLY THREE TIMES DAILY, NOTES: 12/14 699 TAKING SYMBICORT 80-4.5 MCG/ACT AEROSOL 2 PUFFS INHALATION TWICE A DAY, NOTES: 2 WEEKS AGO TAKING ACETAMINOPHEN 500 MG TABLET 2 TABLETS NEEDED ORALLY EVERY 6 HRS, NOTES: 12/12 TAKING RANITIDINE HCL 75 MG TABLET 1 TABLET ORALLY BEFORE BEDTIME, NOTES: 12/13 NOT-TAKING OXYCODONE HCL 5 MG TABLET 1 TABLET ORALLY EVERY 6 HRS PRN FOR PAIN MDD3, NOTES: HAS RUN OUT NOT-TAKING SERTRALINE HCL 50 MG TABLET TAKE ONE TABLET BY MOUTH EVERY DAY ORAL , NOTES: 3 MONYHS AGO NOT-TAKING LIDODERM 5 % PATCH 1 PATCH TO INTACT SKIN REMOVE AFTER 12 HOURS EXTERNALLY ONCE A DAY, NOTES: RAN OUT OF DISCONTINUED VITAMIN B COMPLEX TABLET ORALLY DISCONTINUED ROBAXIN 500 MG TABLET 2 TABLETS ORALLY EVERY 6 HRS MAY CAUSE DROWSINESS DISCONTINUED IRON 1 TAB ORAL MEDICATION LIST REVIEWED AND RECONCILED WITH THE PATIENT PAST MEDICAL HISTORY DVT CHRONIC BACKPAIN AND NECK PAIN HEADACHE PE RA ANGINA PECTORIS SLEEP APNEA ON CPAP ALLERGIES IBUPROFEN: INTOLERANCE SOCIAL HISTORY GENERAL: TOBACCO USE ARE YOU A:FORMER SMOKER HOW LONG HAS IT BEEN SINCE YOU LAST SMOKED?> 10 YEARS RECREATIONAL DRUG USE DRUG USE?NO CAFFEINE CAFFEINE USE?NO LEARNING BARRIERS / SPECIAL NEEDS ABILITY TO UNDERSTAND VERBAL INSTRUCTIONS GOOD, ABILITY TO UNDERSTAND WRITTEN INSTRUCTIONS GOOD, KNOWLEDGE OF EDUCATIONAL NEEDS/TREATMENT PLAN GOOD, SABIANISM? NO, ORIENTED TO PLAN OF CARE: PATIENT, PAIN MANAGEMENT PATIENT. MEDICATION ABUSE NO PSYCHOLOGICAL HX TREATMENTNO NEW PATIENT PAIN DIARY PATIENT DESCRIBES PAIN :ACHING, HAVE IT ALL THE TIME, SHARP, STABBING, SORE PAIN CLINIC PFS, CLERGY, PUBLIC HEALTH REFERRALS PFS REFERRAL NEEDED?NO CLERGY REFERRAL NEEDED?NO PUBLIC HEALTH REFERRAL NEEDED?NO WAS THE PROVIDER NOTIFIED OF ANY PERTINENT INFO?NO HAS THE PATIENT BEEN EDUCATED REGARDING HIS/HER PLAN OF CARE?YES HAS THE PATIENT BEEN EDUCATED REGARDING PAIN, THE RISK FOR PAIN, THE IMPORTANCE OF EFFECTIVE PAIN MANAGEMENT, AND THE PAIN ASSESSMENT PROCESS?YES PATIENT: ____, DENIES ABUSE OR MISUSE OF ANY MEDICATION. ADVANCE DIRECTIVES HEALTH CARE PROXY?YES NAME OF HCP DEBORA COCHRAN CONTACT # FOR HCP [phone] DO YOU HAVE A COPY WITH YOU?NO POWER OF MENTAL MEASUREMENTS TEACHER?NO DOMESTIC VIOLENCE DO YOU FEEL SAFE IN YOUR ENVIRONMENT?YES REVIEW OF SYSTEMS REVIEWED BY: PROVIDER: . CONSTITUTIONAL: ANY CHANGE IN YOUR MEDICAL CONDITION? NO . CHILLS NO . FEVER NO . INFECTION: DO YOU HAVE NEW INFECTIONS? NO . DO YOU HAVE HISTORY OF MRSA? NO . MUSCULOSKELETAL: ANY NEW PATTERNS OF PAIN OR NUMBNESS? NO . GASTROENTEROLOGY: ANY NEW CHANGE IN BOWEL CONTROL? NO . GENITOURINARY: ANY NEW CHANGE IN BLADDER CONTROL? NO . IS THERE A CHANCE YOU COULD BE ? NO . HEMATOLOGY/LYMPH: DO YOU TAKE ANY BLOOD THINNERS? (FOR EXAMPLE- COUMADIN, PLAVIX, AGGRENOX, PLATEL, PRADAXA, OR XARELTO) YES, ELIQUIS . WHEN WAS YOUR LAST DOSE? DATE: TIME: 12/14 0700 . NEUROLOGY: HAVE YOU FALLEN IN THE PAST 6 MONTHS? NO . ANY NEW EXTREMITY NUMBNESS OR WEAKNESS? NO . CARDIOLOGY: DO YOU HAVE A PACEMAKER OR DEFIBRILLATOR? NO . RESPIRATORY: HAVE YOU BEEN SICK IN THE PAST WEEK? NO . FEVER NO . FLU LIKE SYMPTOMS? NO . COUGH NO . INTEGUMENTARY: DO YOU HAVE ANY RASHES OR OPEN SORES? NO . ALLERGIC/IMMUNO: ARE YOU ALLERGIC TO SHELLFISH OR IV DYE? NO . ANY NEW ALLERGIES? NO . PSYCHIATRIC: DO YOU HAVE THOUGHTS OF HURTING YOURSELF OR SOMEONE ELSE? NO . ARE YOU ABUSED, NEGLECTED, OR IN AN UNSAFE ENVIRONMENT? NO . ENDOCRINOLOGY: ARE YOU DIABETIC? NO . OTHER: DO YOU NEED ANY PRESCRIPTIONS? YES . IF YES, PLEASE LIST: PERCOCET . ANY NEW PROBLEMS WITH YOUR MEDICATIONS? NO . WHEN DID YOU LAST EAT? 12/14 1800 . WHEN DID YOU LAST DRINK? 12/15 1100 . WHAT DID YOU LAST DRINK? WATER . NAME OF PERSON DRIVING YOU HOME? , DON . DO YOU HAVE ANY OTHER QUESTIONS OR CONCERNS NO . VITAL SIGNS WT 296 LBS, HT 67 IN, BMI 46.36 INDEX, BP 144/87 MM HG, HR 89 /MIN, RR 18 /MIN, TEMP 98.3 F, OXYGEN SAT % 99%, NA INITIALS SC 14:30, REVIEWED BY: AD. ASSESSMENTS MYALGIA - M79.1 (PRIMARY) PROCEDURES PN TRIGGER POINT INJECTION WITH STEROIDS PRE PROCEDURE DIAGNOSIS 1. MYALGIA 2. PAIN AT RIGHT SHOULDER AREA AND RIGHT THORACIC AREA POST PROCEDURE DIAGNOSIS 1. MYALGIA 2. PAIN AT RIGHT SHOULDER AREA AND RIGHT THORACIC AREA PROCEDURE TRIGGER POINT INJECTION AT RIGHT SHOULDER AREA AND RIGHT THORACIC AREA SURGEON DR. BETZY RIVERA EXCEL EXPERT NONE ANESTHESIA LOCAL PRE PROCEDURE NOTE THE PATIENT HAS A HISTORY OF CHRONIC PAIN AT THE RIGHT SHOULDER AREA AND RIGHT THORACIC AREA. I EVALUATE THE PATIENT AND REVIEWED THE CHART. THERE IS EVIDENCE OF BANDS OF TISSUE WITH RESTRICTION OF MOVEMENT AND PRESENCE OF TRIGGER POINT AT THE AFFECTED AREA. I WENT OVER THE RISKS, ALTERNATIVES, AND BENEFITS ASSOCIATED WITH THIS PROCEDURE. THE PATIENT WOULD LIKE TO PROCEED AND GIVE CONSENT TO PERFORMED THE PROCEDURE. THE PATIENT DENIES UNEXPLAINABLE WEIGHT LOSS, FEVER, CHILLS, OR NEW CHANGES IN URINARY OR BOWEL CONTROL DESCRIPTION OF PROCEDURE THE PATIENT WAS BROUGHT TO THE PROCEDURE ROOM AND PLACED IN THE SITTING POSITION. THE AREA WAS CLEANED WITH ALCOHOL. THE PROCEDURE WAS DONE USING ASEPTIC STERILE TECHNIQUE. I CHECKED LATERALITY AND THE LEVEL WHERE THE PROCEDURE WAS GOING TO BE PERFORMED WITH THE PATIENT AND THE SUPPORTING STAFF AT THE MOMENT OF THE TIME OUT IN THE PROCEDURE ROOM. USING A 25-GAUGE NEEDLE, TRIGGER POINTS WERE INJECTED AT THE RIGHT SHOULDER AREA AND RIGHT THORACIC AREA WITH A TOTAL OF 40 ML OF BUPIVACAINE 0.25% AND KENALOG 40 MG. THERE WAS NO EVIDENCE OF BLOOD, PARESTHESIA OR CEREBROSPINAL FLUID DURING THE PROCEDURE. THE PATIENT WAS SENT TO THE RECOVERY ROOM. THE PATIENT WAS MOVING THE EXTREMITIES AND DOING WELL. THERE WAS NO COMPLICATION DURING THE PROCEDURE POST PROCEDURE NOTE THE PATIENT WILL BE SEEN IN A FOLLOW UP IN THE NEXT FEW WEEKS. INSTRUCTIONS WERE GIVEN, QUESTIONS WERE ANSWERED, AND THE PATIENT EXPRESSED UNDERSTANDING AND AGREES WITH THE PLAN. I, EREN BERG, DOCUMENTED THE ABOVE INFORMATION ACTING A SCRIBE FOR DR. RIVERA. I HAVE REVIEWED THE ABOVE DOCUMENT, WRITTEN BY EREN NAIK AND I VERIFY THAT IT IS ACCURATE PROCEDURE CODES 24692 INJ TRIGGER POINT / MUSC DISPOSITION & COMMUNICATION FOLLOW UP 3 WEEKS ELECTRONICALLY SIGNED BY BETZY RIVERA MD ON 12/20/2016 AT 02:44 AM EDT DISCLAIMER : THIS IS A VISIT SUMMARY EXTRACTED FROM THE [employer] CHART. IT IS NOT A COPY OF THE [employer] PROGRESS NOTE. ETHAN
== END ==
LOC: M PAIN 14:15
PROVIDERS: ATTEND Anesthesiology
DX: G89.29 Other chronic pain (principal); M79.1 Myalgia; Z87.891 Personal history of nicotine dependence; Z88.6 Allergy status to analgesic agent; Z86.711 Personal history of pulmonary embolism; Z86.2 Personal history of diseases of the blood and blood-forming organs and certain disorders involving the immune mechanism
CPT/HCPCS: 20552; J3301

== ENCOUNTER → 2017-06-07 | Outpatient (CLI) | payer BC, OTHER | LOC: M PAIN 09:15 | DX: M25.511 Pain in right shoulder (principal); G89.29 Other chronic pain; M79.1 Myalgia; M06.9 Rheumatoid arthritis, unspecified; G47.30 Sleep apnea, unspecified; Z79.01 Long term (current) use of anticoagulants; Z79.899 Other long term (current) drug therapy; Z88.6 Allergy status to analgesic agent; Z86.79 Personal history of other diseases of the circulatory system; Z86.718 Personal history of other venous thrombosis and embolism | CPT/HCPCS: G0463 ==

== ENCOUNTER → 2017-07-03 | Outpatient (REF) | payer OTHER | LOC: M SFHCLERA 14:43 | DX: R10.13 Epigastric pain (principal) | CPT/HCPCS: 87186 ==

== ENCOUNTER 2018-04-06 23:49 | Emergency (ER) | payer BC, OTHER ==
[~2018-04-06] VITALS: Ht 167.6 cm; Wt 135.4 kg
[~2018-04-06 23:49] MED LIST changes: -BUPIVACAINE HCL 0.25% 10 ML VIAL As Ordered ONE; -BUPIVACAINE HCL 0.25% 30 ML VIAL As Ordered ONE; +GABA-1171; -GABA-279; +MELO15TA28 PO; -MELO15TA4 PO; -TRIAMCINOLONE ACETONIDE SUSP 40 MG/ML VIAL (J3301) As Ordered ONE; -ZOFR20TA PO; +ZOFR4TAB16 PO
[2018-04-06] MEDS ORDERED: BENA25CA4 PO (23:57)
[2018-04-06] MEDS ORDERED: RANI1TAB38 PO (23:57)
[2018-04-06] MEDS ORDERED: PRED20TA PO (23:57)
[2018-04-07] MEDS ORDERED: NS 1,000 ML IV ONE (00:30)
[2018-04-07] MEDS ORDERED: methylPREDNISolone INJ 125 MG/2 ML VIAL (J2930) IV ONE (00:30)
[2018-04-07] MEDS ORDERED: ALBUTEROL SULFATE 2.5 MG/0.5 ML INH NEB SOLN NEB SCH (00:30)
[2018-04-07] MEDS ORDERED: diphenhydrAMINE INJ 50MG/ML VIAL (J1200) IV ONE (00:30)
[2018-04-07] MEDS ORDERED: FAMOTIDINE INJ 20MG/2ML VIAL (S0028) IV ONE (00:30)
[2018-04-07 00:38] LABS: BASO % 0.1 % (0.0-1.0); HEMATOCRIT 44.8 % (36.0-47.0); LYMPH # 2.3 10^3/uL (1.5-4.5); LYMPH % 8.1 % (24.0-44.0); MEAN CORPUSCULAR HEMOGLOBIN 26.6 pg (27.0-33.0); MEAN CORPUSCULAR HGB CONC 31.3 g/dl (32.0-36.5); MONO # 1.3 10^3/uL (0.0-0.8); MONO % 4.8 % (0.0-5.0); NEUTROPHILS # 24.1 10^3/uL (1.8-7.7); NEUTROPHILS % 86.2 % (36.0-66.0); PLATELET COUNT, AUTOMATED 328 10^3/uL (150-450); RED BLOOD COUNT 5.27 10^6/uL (4.00-5.40)
[2018-04-07 02:31] VITALS: BP 128/63
--- NOTE | 2018-04-07 07:49 | REP ---
Clinical: Cough and dyspnea . Comparison: 02/01/2015 . Technique: PA and lateral. Findings: The mediastinum and cardiac silhouette are normal. The lung flood are clear and without acute consolidation, effusion, or pneumothorax. The skeletal structures are intact and normal. Impression: 1. No acute cardiopulmonary process. Electronically Signed by Chaitanya Ospina MD 04/07/2018 07:41 A
[2018-04-08] MEDS ORDERED: PRED20TA PO (15:58)
[2018-04-08] MEDS ORDERED: BENA25CA4 PO (15:58)
== END 2018-04-07 02:21 | disposition home or self-care (01) ==
LOC: M ED 23:49
DX: R21 Rash and other nonspecific skin eruption (principal); L29.9 Pruritus, unspecified; L50.9 Urticaria, unspecified; T78.49XA Other allergy, initial encounter; X58.XXXA Exposure to other specified factors, initial encounter; Y92.89 Other specified places as the place of occurrence of the external cause; G43.909 Migraine, unspecified, not intractable, without status migrainosus; Z86.711 Personal history of pulmonary embolism; Z79.01 Long term (current) use of anticoagulants; Z88.0 Allergy status to penicillin; Z88.8 Allergy status to other drugs, medicaments and biological substances; Z91.048 Other nonmedicinal substance allergy status; Z87.891 Personal history of nicotine dependence
CPT/HCPCS: 71046; 85025; 94640; 96374; 96375; 99284; J1200; J2930

== ENCOUNTER 2018-04-08 13:38 | Emergency (ER) | payer BC, OTHER ==
[~2018-04-08] VITALS: Ht 167.6 cm; Wt 135.4 kg
[~2018-04-08 13:38] MED LIST changes: +BENA25CA4 PO; +PRED20TA PO; +RANI1TAB38 PO
[2018-04-08] MEDS ORDERED: diphenhydrAMINE 50 MG CAP PO ONE (14:30)
[2018-04-08] MEDS ORDERED: OMEPRAZOLE 20 MG CAP PO ONE (14:30)
[2018-04-08] MEDS ORDERED: predniSONE 20 MG TAB PO ONE (14:30)
[2018-04-08] MEDS ORDERED: BENA25CA4 PO (15:58)
[2018-04-08] MEDS ORDERED: PRED20TA PO (15:58)
[2018-04-08 16:05] VITALS: BP 116/86
== END 2018-04-08 16:24 | disposition home or self-care (01) ==
LOC: M ED 13:38
DX: R21 Rash and other nonspecific skin eruption (principal); T78.49XA Other allergy, initial encounter; X58.XXXA Exposure to other specified factors, initial encounter; Y92.89 Other specified places as the place of occurrence of the external cause; I25.10 Atherosclerotic heart disease of native coronary artery without angina pectoris; Z79.899 Other long term (current) drug therapy; Z79.01 Long term (current) use of anticoagulants; Z88.0 Allergy status to penicillin; Z88.8 Allergy status to other drugs, medicaments and biological substances; Z91.048 Other nonmedicinal substance allergy status; Z87.891 Personal history of nicotine dependence

== ENCOUNTER 2018-12-16 18:02 | Emergency (ER) | payer BC, OTHER ==
[~2018-12-16] VITALS: Ht 172.7 cm; Wt 154.6 kg
[~2018-12-16 18:02] MED LIST changes: -VICO7.5T11 PO; +VICO7.5T12 PO
[2018-12-16] MEDS ORDERED: GI COCKTAIL 50ML BTL(HYOSCYAMINE/MAALOX/LIDOCAINE VISCOUS)(1:3:1) PO ONE (18:45)
[2018-12-16 18:58] LABS: BASO % 0.3 % (0.0-1.0); EOS # 0.2 10^3/uL (0.0-0.5); EOS % 1.3 % (0.0-3.0); HEMATOCRIT 45.7 % (36.0-47.0); LYMPH # 1.2 10^3/uL (1.5-5.0); LYMPH % 9.2 % (24.0-44.0); MEAN CORPUSCULAR HEMOGLOBIN 26.6 pg (27.0-33.0); MEAN CORPUSCULAR HGB CONC 30.6 g/dl (32.0-36.5); MEAN CORPUSCULAR VOLUME 86.9 fl (80.0-96.0); MONO # 0.7 10^3/uL (0.0-0.8); MONO % 5.2 % (0.0-5.0); NEUTROPHILS # 10.6 10^3/uL (1.5-8.5); NEUTROPHILS % 83.6 % (36.0-66.0); PLATELET COUNT, AUTOMATED 271 10^3/uL (150-450); RED BLOOD COUNT 5.26 10^6/uL (4.00-5.40); WHITE BLOOD COUNT 12.7 10^3/uL (4.0-10.0)
[2018-12-16 19:08] LABS: INR 0.94; PROTHROMBIN TIME 12.2 SECONDS (11.8-14.0)
[2018-12-16 19:10] LABS: D-DIMER QUANT 375.36 ng/ml (<500)
[2018-12-16 19:23] LABS: ALBUMIN 3.7 GM/DL (3.2-5.2); ALT/SGPT 42 U/L (12-78); BILIRUBIN,DIRECT 0.2 MG/DL (0.0-0.2); BILIRUBIN,TOTAL 0.4 MG/DL (0.2-1.0); BLOOD UREA NITROGEN 13 MG/DL (7-18); CALCIUM LEVEL 8.9 MG/DL (8.5-10.1); CARBON DIOXIDE LEVEL 27 MEQ/L (21-32); CHLORIDE LEVEL 107 MEQ/L (98-107); CK-MB VALUE MASS < 1.0 NG/ML (<3.6); CPK CREATINE PHOSPHOKINASE 79 U/L (26-192); CREATININE FOR GFR 0.73 MG/DL (0.55-1.30); GLOMERULAR FILTRATION RATE > 60.0 (>58); GLUCOSE, FASTING 95 MG/DL (70-100); LIPASE 75 U/L (73-393); MB/CK RELATIVE INDEX 1.27 (< OR =4); POTASSIUM SERUM 4.2 MEQ/L (3.5-5.1); SODIUM LEVEL 141 MEQ/L (136-145); TOTAL PROTEIN 7.6 GM/DL (6.4-8.2); TROPONIN I < 0.02 NG/ML (< 0.10)
[2018-12-16] MEDS ORDERED: MORPHINE 2 MG/ML 1ML VIAL (J2270) IV ONE (20:00)
[2018-12-16] MEDS ORDERED: DICYCLOMINE 10 MG CAP PO ONE (20:15)
[2018-12-16 20:45] VITALS: BP 130/63
[2018-12-16] MEDS ORDERED: DICY10CA13 PO (21:03)
--- NOTE | 2018-12-17 09:00 | REP ---
REASON: Chest pain. COMPARISON: Multiple, the latest 04/07/2018. FINDINGS: The superior mediastinal structures are midline. The cardiac silhouette is unremarkable in size, shape, and position. The diaphragmatic surfaces of the lungs are regular, and the costophrenic angles are clear. The pulmonary flood are clear. The imaged osseous structures are intact. IMPRESSION: There is no acute cardiopulmonary disease. Electronically Signed by Mathew Gutierrez DO 12/17/2018 09:01 A
--- NOTE | 2018-12-19 07:31 | ECGEPIP ---
[facility] - ED Test Date: 2018-12-16 Pat Name: FARIBA COCHRAN Department: Room: - Gender: Female [employer]: : 1975 Requested By: DOMINIC THOMAS Order Number: [id number] Reading MD: Iftikhar Spence Measurements Intervals [place] Rate: 87 P: 17 AR: 171 QRS: 31 QRSD: 87 T: 5 QT: 330 QTc: 397 Interpretive Statements SINUS RHYTHM WITH MARKED SINUS ARRHYTHMIA MINIMAL VOLTAGE CRITERIA FOR LVH, CONSIDER NORMAL VARIANT SIMILAR TO 11/22/16 Electronically Signed on 12-19-2018 7:31:07 EDT by Iftikhar Spence
== END 2018-12-16 21:33 | disposition home or self-care (01) ==
LOC: M ED 18:02
DX: R07.89 Other chest pain (principal); R09.1 Pleurisy; I49.9 Cardiac arrhythmia, unspecified; Z79.51 Long term (current) use of inhaled steroids; Z79.52 Long term (current) use of systemic steroids; Z79.899 Other long term (current) drug therapy; Z88.0 Allergy status to penicillin; Z88.6 Allergy status to analgesic agent; Z88.8 Allergy status to other drugs, medicaments and biological substances
CPT/HCPCS: 71046; 80048; 80076; 82550; 82553; 83690; 84484; 85025; 85379; 85610; 93005; 93041; 94760; 96374; 99285; J2270

== ENCOUNTER → 2020-03-18 | Outpatient (CLI) | payer SELFPAY ==
[~2020-03-18] MED LIST changes: +DICY10CA13 PO; +ONDA-83 PO; -ONDA4TAB5 PO; +ZONI25CA13 PO; -ZONI25CA2 PO
== END ==
LOC: M LABSMTC 11:06
PROVIDERS: ATTEND Pediatrics
DX: Z20.828 Contact with and (suspected) exposure to other viral communicable diseases (principal)

== ENCOUNTER → 2020-04-04 | Outpatient (CLI) | payer BC, OTHER | LOC: M LABSMTC 12:52 | PROVIDERS: ATTEND Pediatrics | DX: Z20.822 Contact with and (suspected) exposure to COVID-19 (principal) | CPT/HCPCS: C9803; U0003 ==

== ENCOUNTER → 2024-01-25 | Outpatient (REF) | payer OTHER ==
[~2024-01-25] MED LIST changes: +DICY-61 PO; -DICY10CA13 PO; -PHEN30CA2; +PHEN30CA21
[2024-01-25 18:50] LABS: PERCENT SATURATION 23.3 % (13.2-45.0)
[2024-01-25 18:52] LABS: FERRITIN 159.7 NG/ML (7.3-270.7)
== END ==
LOC: M LAB REF 17:31
PROVIDERS: ATTEND Nurse Practitioner Family
DX: D64.9 Anemia, unspecified (principal)